=== PATIENT | female | born 1950 | race Caucasian/White ===

== ENCOUNTER → 2016-11-23 | Outpatient (CLI) | payer OTHER ==
[~2016-11-23] MED LIST: ACTOPLUS MET PO; ACTOS PO; ALBUTEROL17 GM; ALLERGY SHOTS; ALPRAZOLAM0.5 MG PO; ASPIRIN81 M1 PO; ASPIRIN81 M2 PO; CELEBREX PO; CELECOXIB200 MG PO; CENTRUM SILVER PO; COLACE PO; COMBIVENT RESPIM4 GM IH; COMBIVENT U/D3 M2 IH; COMPLETE MULTI1 EAC1 PO; EC-NAPROSYN500 MG PO; ENDOCET 10-3251 TAB PO; FLEXERIL PO; FLEXERIL10 MG PO; GLUCOPHAGE XR500 MG; GLUCOPHAGE XR500 MG PO; LEVAQUIN PO; LISINOPRIL PO; LISINOPRIL20 MG PO; LORTAB 10-5001 EACH PO; LORTAB 7.5-5001 TAB; LORTAB 7.5-5001 TAB PO; METFORMIN PO; MULTIPLE VITAMI1 T12 PO; NAPROXEN; NEXIUM PO; PERCOCET; PERCOCET 10/3251 TAB PO; PHILLIPS500 MG PO; POTASSIUM PO; PRINIVIL20 M1 PO; SENNA LAXATIVE1 TAB PO; SINGULAIR PO; STOOL SOFTENER100 M1 PO; TOPAMAX200 MG PO; TOPIRAMATE100 MG PO; TRIAMTERENE/HCT1 CA3 PO; VICODIN 5/500 T1 TAB PO; VITAMIN AND MIN PO; XANAX XR0.5 MG PO
--- NOTE | ~2016-11-23 | MR103 ---
[facility] A Service of [facility] RADIOLOGY TEXT RESULTS PATIENT: MARANDA LAMA LOCATION: [facility] : 54 UNIT #: [id number] AGE: [address]: Nona Porter SEX: F ORDER DR: [id number] [address] [address] [id number] O MR#: [id number] Acc #: [id number] NAME: MARANDA LAMA : 1950 SEX: F STUDY DATE/TIME: 11/23/2016 14:55 UNIT: [facility] ROOM: STUDY DESCRIPTION: MR Knee Wo Contrast Lt Attending Physician: Nona Porter P.A.-C. Referring Physician: Nona Porter P.A.-C. Ordering Physician: Nona Porter P.A.-C. Primary Care Physician: Carlos Alberto Zapata M.D. MRI CENTER REPORT This report is preliminary unless electronic signature is present. EXAM MRI left knee, 11/23/2016 COMPARISON MRI left knee 08/16/2008 and left knee radiographs 10/24/2008. HISTORY Order states medial knee pain, swelling. History sheet states pain mainly posterior and medial to patella since 07/26/2016. Knee giving out with some swelling. Knee bent the wrong way June 2016 and fell around [place]. No previous surgery. Diabetic and history of lung cancer. FINDINGS There is no effusion or popliteal cyst. 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 Joint space narrowing, osteophyte formation, and fairly diffuse moderate and high-grade chondromalacia patellofemoral compartment predominates in the lateral patellar facet. Quadriceps and patellar tendons are intact. There is minimal inflammation in the superficial prepatellar tendon bursa. Cruciate ligaments are intact. There is mild lateral compartment arthrosis with osteophyte formation, mild joint space narrowing, and small foci of weightbearing moderate-grade chondromalacia. The lateral collateral ligament complex and popliteus tendon are intact. There is a small oblique undersurface tear in the anterior body of the lateral meniscus extending into myxoid degeneration of the anterior body and horn. There is moderate medial compartment arthrosis with joint space narrowing, osteophyte formation, meniscal subluxation, grade 4 weightbearing chondromalacia, and subarticular reactive edema of the periphery of the STS. [facility] A Service of [facility] RADIOLOGY TEXT RESULTS PATIENT: MARANDA LAMA LOCATION: [facility] : 54 UNIT #: [id number] AGE: [address]: Nona Porter SEX: F ORDER DR: medial tibial plateau. There is complex likely degenerative tear of the posterior body and horn of the medial meniscus with extensive free margin tear/maceration and equivocal small slightly cranially displaced meniscal flap above the posterior horn. This tear has progressed in complexity since a previous MRI of 08/16/2008. There is no marrow lesion, fracture, or sizeable loose body. Exam is motion degraded with repeat sequences performed. It appears diagnostic. The MCL is intact. IMPRESSION 1. The predominant abnormality is moderately advanced medial compartment arthrosis with progressive complex tear of the posterior body and horn compared to a previous study performed on 08/16/2008. 2. Moderate patellofemoral compartment arthrosis. 3. Minimal lateral compartment arthrosis with a small oblique undersurface tear in the anterior body of the lateral meniscus. 4. Mild peripheral medial tibial arthropathic reactive edema of the tibia. 5. No fracture, effusion, or loose body. Dictated by... Izabela Olson M.D. THIS IS AN ELECTRONICALLY VERIFIED REPORT Izabela Olson M.D. at 11/24/2016 1:55 PM BIMAL/ariela TD: 11/24/2016 12:08 JOB #: [id number] MRI CENTER REPORT Page 1 of 1
== END | disposition home or self-care (01) ==
LOC: SMRI 14:30
DX: M25.562 Pain in left knee (principal); M23.242 Derangement of anterior horn of lateral meniscus due to old tear or injury, left knee; M23.207 Derangement of unspecified meniscus due to old tear or injury, left knee; M17.11 Unilateral primary osteoarthritis, right knee
CPT/HCPCS: 73721